=== PATIENT | male | born 1950 | race Caucasian/White ===

== ENCOUNTER 2016-10-01 09:56 | Emergency (ER) | payer MEDICARE, BC ==
[2016-10-01] MEDS ORDERED: MECLIZINE 25 MG TABLET PO ONE (10:15)
--- NOTE | 2016-10-01 10:21 | Emergency Department Record ---
History of Present Illness - General Chief Complaint: Dizziness Stated Complaint: FEELING UNBALANCED Time Seen by Provider: 10/01/16 10:15 Source: Patient Mode of Arrival: Ambulatory Limitations: No limitations - History of Present Illness Initial Comments: 65 yo male presents to ED with a CC of feeling "off balance" after bending down this morning to tie his shoes. Patient reports similar symptoms previously, denies numbness, tingling, or focal weakness on examination. Patient drove himself here, and denies difficulty walking. MD Complaint: Dizziness Onset/Timin -: Hour(s) Timing: Sudden onset Description: Nausea, "Room spinning" History of Same: Yes History of Trauma: No Severity: Mild Improves With: Nothing Worsens With: Nothing Associated Symptoms: Denies other symptoms - [place] Coma Scale Eye Response: (4) Open spontaneously Motor Response: (6) Obeys commands Verbal Response: (5) Oriented Maggie Total: 15 - Related Data Home Medications Medication Instructions Recorded Confirmed Last Taken Levothyroxine Sodium [Synthroid] 175 mcg PO DAILY 09/29/14 10/01/16 03/19/16 Lisinopril [Lisinopril] 10 mg PO DAILY 09/29/14 10/01/16 03/19/16 Montelukast Sodium [Singulair] 10 mg PO DAILY 09/29/14 10/01/16 03/19/16 Omeprazole [Omeprazole] 20 mg PO DAILY 09/29/14 10/01/16 03/19/16 Terazosin HCl 2 mg PO DAILY 03/20/16 10/01/16 03/19/16 Tamsulosin HCl [Flomax] 0.4 mg PO DAILY 10/01/16 10/01/16 Unknown Previous Rx's Medication Instructions Recorded Meclizine HCl [Antivert] 25 mg PO Q8H PRN #20 tablet 10/01/16 Allergies Allergy/AdvReac Type Severity Reaction Status Date / Time No Known Drug Allergies Allergy Verified 03/20/16 09:37 Travel Screening - Travel/Exposure Within Last 30 Days Have you traveled within the last 30 days?: No Review of Systems Constitutional: Denies: Chills, Fever, Malaise, Night sweats Eyes: Denies: Eye discharge, Eye pain, Photophobia ENT: Denies: Congestion, Ear pain, Epistaxis Respiratory: Denies: Cough, Dyspnea, Hemoptysis Cardiovascular: Denies: Chest pain, Dyspnea on exertion Endocrine: Denies: Fatigue, Heat or cold intolerance Gastrointestinal: Reports: Nausea. Denies: Abdominal pain, Constipation, Vomiting Genitourinary: Denies: Incontinence, Retention Musculoskeletal: Denies: Arthralgia, Back pain, Gout, Joint swelling Skin: Denies: Bruising, Change in color Neurological: Reports: Vertigo. Denies: Abnormal gait, Confusion, Headache, Seizure Psychiatric: Denies: Anxiety Hematological/Lymphatic: Denies: Anemia, Blood Clots Past Medical History - SOCIAL HISTORY Smoking Status: Former smoker Alcohol Use: None Drug Use: None - RESPIRATORY Hx Respiratory Disorders: Yes Hx COPD: Yes - CARDIOVASCULAR Hx Cardio Disorders: Yes Hx Hypertension: Yes - NEURO Hx Neuro Disorders: No - GI Hx GI Disorders: No - Hx Genitourinary Disorders: No - ENDOCRINE Hx Endocrine Disorders: Yes Hx Thyroid Disease: Yes (Hypothyroidism) - MUSCULOSKELETAL Hx Musculoskeletal Disorders: No - PSYCH Hx Psych Problems: No - HEMATOLOGY/ONCOLOGY Hx Hematology/Oncology Disorders: No Family Medical History Any Significant Family History?: Yes Hx Heart Disease: Father Physical Exam - General General Appearance: Alert, Oriented x3, Cooperative, No acute distress, Other ( ambulates with steady gait) Limitations: No limitations - Head Head exam: Atraumatic, Normocephalic, Normal inspection Head exam detail: negative: Abrasion, Contusion, Aguilar's sign, General tenderness, Hematoma, Laceration - Eye Eye exam: Normal appearance, EOMI. negative: Conjunctival injection, Periorbital swelling, Periorbital tenderness, Scleral icterus - ENT Ear exam: negative: Auricular hematoma, Auricular trauma Nasal Exam: negative: Active bleeding, Discharge, Dried blood, Foreign body Mouth exam: negative: Drooling, Laceration, Muffled voice, Tongue elevation - Neck Neck exam: Normal inspection. negative: Meningismus, Tenderness - Respiratory Respiratory exam: Normal lung sounds bilaterally. negative: Rales, Respiratory distress, Rhonchi, Stridor - Cardiovascular Cardiovascular Exam: Regular rate, Normal rhythm, Normal heart sounds - GI/Abdominal GI/Abdominal exam: Soft. negative: Rebound, Rigid, Tenderness - Rectal Rectal exam: Deferred - exam: Deferred - Extremities Extremities exam: negative: Calf tenderness, Pedal edema, Tenderness - Back Back exam: Denies: CVA tenderness (R), CVA tenderness (L) - Neurological Neurological exam: Alert, CN II-XII intact, Oriented X3, Other (rapid, alternating UE movements are normal on examination, normal speech on exam). negative: Motor sensory deficit - Psychiatric Psychiatric exam: Normal affect, Normal mood - Skin Skin exam: Normal color. negative: Abrasion Type of lesion: negative: abrasion Course Vital Signs 10/01/16 10:00 Temperature 97.6 F Pulse Rate 72 Respiratory 20 Rate Blood Pressure 149/84 Pulse Ox 97 - Reevaluation(s) Reevaluation #1: 10/01/16 10:46 Labs reviewed and are grossly unremarkable for an acute process. Patient was updated on all results and reports improvement in his symptoms. Patient has no clinical sings of cerebellar CVA on examination, has steady gait, and normal rapid, alternating movements on examination. Patient appears stable for discharge at this time. Medical Decision Making - Lab Data Result diagrams: 10/01/16 10:25 10/01/16 10:25 Disposition Disposition: Discharge Clinical Impression: Vertigo Disposition: Home, Self-Care Condition: (2) Stable Instructions: Dizziness (ED) Additional Instructions: Return to ED if your symptoms worsen or if you have any concerns. Antivert as directed. Follow-up with your family doctor in 3-5 days as directed. Prescriptions: Meclizine HCl [Antivert] 25 mg PO Q8H PRN #20 tablet PRN Reason: Dizziness Forms: Patient Portal Access Time of Disposition: 10:48
[2016-10-01 10:30] LABS: BASO % 0.4 % (0-6); EOS % 1.6 % (0-6); GRAN % 62.8 % (47-80); HEMATOCRIT 40.4 % (42.0-52.0); HEMOGLOBIN 13.7 gm/dl (14.0-18.0); LYMPH % 25.5 % (16-45); MEAN CELL VOLUME 86.3 fl (81-97); MEAN CORPUSCULAR HGB CONC 33.9 g/dl (32-36); MONO % 9.7 % (0-9); PLATELET COUNT 230 K/uL (130-400); RED BLOOD COUNT 4.68 M/uL (4.40-5.70); RED CELL DISTRIBUTION WIDTH 14.8 % (11.5-14.5); WHITE BLOOD COUNT W/O DIFF 5.5 K/uL (4.2-12.2)
[2016-10-01 10:31] LABS: MEAN CORPUSCULAR HEMOGLOBIN 29.2 pg (27-33)
[2016-10-01 10:44] LABS: ALB/GLOB RATIO 1.5 (1.1-1.8); ALBUMIN 4.1 gm/dL (3.5-5.0); ALKALINE PHOSPHATASE 73 U/L (38-126); ALT/SGPT 41 U/L (21-72); ANION GAP 12.2 (7-16); AST/SGOT 33 U/L (17-59); BILIRUBIN,TOTAL 0.46 mg/dL (0.2-1.3); BLOOD UREA NITROGEN 16 mg/dL (9-20); CARBON DIOXIDE 25.8 mmol/L (22-30); EST GLOMERULAR FILTRATION RATE > 60 ml/min; GLUCOSE,RANDOM 105 mg/dL (70-110); TOTAL PROTEIN 6.9 gm/dL (6.3-8.2)
== END 2016-10-01 11:02 | disposition home or self-care (01) ==
LOC: ER 09:56
DX: R42 Dizziness and giddiness (principal); R11.0 Nausea; I10 Essential (primary) hypertension; J44.9 Chronic obstructive pulmonary disease, unspecified; Z87.891 Personal history of nicotine dependence
CPT/HCPCS: 80053; 85025; 99283

== ENCOUNTER 2016-12-07 07:19 | Emergency (ER) | payer MEDICARE, BC ==
[2016-12-07] MEDS ORDERED: IPRATROPIUM/ALBUTEROL (0.5MG/3MG) NEB INH ONE (07:44)
--- NOTE | 2016-12-07 07:50 | Emergency Department Record ---
History of Present Illness - General Chief Complaint: Wheezing Stated Complaint: COUGHING/WHEEZING/CONGESTION Time Seen by Provider: 12/07/16 07:37 Source: Patient Mode of Arrival: Ambulatory Limitations: No limitations - History of Present Illness Initial Comments: pt has been sick since fri prod brown cough, fevers, sob, congestion. MD Complaint: Shortness of breath, Wheezing Onset/Timin -: Days(s) Severity: Moderate Associated Symptoms: Productive cough - Related Data Home Medications Medication Instructions Recorded Confirmed Last Taken Levothyroxine Sodium [Synthroid] 150 mcg PO DAILY 09/29/14 12/07/16 1 Day Ago ~12/06/16 Lisinopril [Lisinopril] 10 mg PO DAILY 09/29/14 12/07/16 1 Day Ago ~12/06/16 Montelukast Sodium [Singulair] 10 mg PO DAILY 09/29/14 12/07/16 1 Day Ago ~12/06/16 Omeprazole [Omeprazole] 20 mg PO DAILY 09/29/14 12/07/16 1 Day Ago ~12/06/16 Terazosin HCl 2 mg PO DAILY 03/20/16 12/07/16 1 Day Ago ~12/06/16 Tamsulosin HCl [Flomax] 0.4 mg PO DAILY 10/01/16 12/07/16 1 Day Ago ~12/06/16 Previous Rx's Medication Instructions Recorded Meclizine HCl [Antivert] 25 mg PO Q8H PRN #20 tablet 10/01/16 Albuterol Sulfate [Ventolin Hfa] 1 - 2 puff IH .EVERY 4-6 HOURS PRN 12/07/16 #1 inhaler Amoxicillin [Amoxil] 500 mg PO TID #30 tab 12/07/16 Allergies Allergy/AdvReac Type Severity Reaction Status Date / Time Sulfa (Sulfonamide AdvReac HYPERSENSIT Verified 12/07/16 07:28 Antibiotics) IVITY Travel Screening - Travel/Exposure Within Last 30 Days Have you traveled within the last 30 days?: No - Travel/Exposure Within Last Year Have you traveled outside the [place] in the last year?: No - Additonal Travel Details Have you been exposed to anyone with a communicable illness?: No - Travel Symptoms Symptom Screening: None Review of Systems Reviewed: No additional complaints except as noted below Constitutional: Reports: As per HPI. Denies: Chills, Fever, Malaise, Night sweats, Weakness, Weight change Eyes: Reports: As per HPI. Denies: Eye discharge, Eye pain, Photophobia, Vision change ENT: Reports: As per HPI. Denies: Congestion, Dental pain, Ear pain, Epistaxis , Hearing loss, Throat pain Respiratory: Reports: As per HPI. Denies: Cough, Dyspnea, Hemoptysis, Stridor, Wheezes Cardiovascular: Reports: As per HPI. Denies: Arrhythmia, Chest pain, Dyspnea on exertion, Edema, Murmurs, Orthopnea, Palpitations, Paroxysmal nocturnal dyspnea, Rheumatic Fever, Syncope Endocrine: Reports: As per HPI. Denies: Fatigue, Heat or cold intolerance, Polydipsia, Polyuria Gastrointestinal: Reports: As per HPI. Denies: Abdominal pain, Constipation, Diarrhea, Hematemesis, Hematochezia, Melena, Nausea, Vomiting Genitourinary: Reports: As per HPI. Denies: Dysuria, Frequency, Hematuria, Incontinence, Retention, Testicular pain, Testicular mass, Urgency Musculoskeletal: Reports: As per HPI. Denies: Arthralgia, Back pain, Gout, Joint swelling, Myalgia, Neck pain Skin: Reports: As per HPI. Denies: Bruising, Change in color, Change in hair/ nails, Lesions, Pruritus, Rash Neurological: Reports: As per HPI. Denies: Abnormal gait, Confusion, Headache, Numbness, Paresthesias, Seizure, Tingling, Tremors, Vertigo, Weakness Psychiatric: Reports: As per HPI. Denies: Anxiety, Auditory hallucinations, Depression, Homicidal thoughts, Suicidal thoughts, Visual hallucinations Hematological/Lymphatic: Reports: As per HPI. Denies: Anemia, Blood Clots, Easy bleeding, Easy bruising, Swollen glands Past Medical History - SOCIAL HISTORY Smoking Status: Former smoker Alcohol Use: Occassional Drug Use: None - RESPIRATORY Hx Respiratory Disorders: Yes Hx Bronchitis: Yes Hx COPD: Yes Hx Pneumonia: Yes (2-3 times) - CARDIOVASCULAR Hx Cardio Disorders: Yes Hx Hypertension: Yes - NEURO Hx Neuro Disorders: No - GI Hx GI Disorders: No - Hx Genitourinary Disorders: No - ENDOCRINE Hx Endocrine Disorders: Yes Hx Thyroid Disease: Yes (Hypothyroidism) - MUSCULOSKELETAL Hx Musculoskeletal Disorders: No - PSYCH Hx Psych Problems: No - HEMATOLOGY/ONCOLOGY Hx Hematology/Oncology Disorders: No Family Medical History Any Significant Family History?: Yes Hx Heart Disease: Father Physical Exam - General General Appearance: Alert, Oriented x3, Cooperative, Mild distress - Head Head exam: Normal inspection - Eye Eye exam: Normal appearance, PERRL, EOMI Pupils: Normal accommodation - ENT ENT exam: Normal exam, Mucous membranes moist, Normal external ear exam, Normal orophraynx, TM's normal bilaterally Ear exam: Normal external inspection. negative: External canal tenderness Nasal Exam: Normal inspection. negative: Discharge, Sinus tenderness Mouth exam: Normal external inspection, Tongue normal Teeth exam: Normal inspection. negative: Dental caries Throat exam: Normal inspection. negative: Tonsillar erythema, Tonsillar exudate - Neck Neck exam: Normal inspection, Full ROM. negative: Tenderness - Respiratory Respiratory exam: Decreased breath sounds. negative: Respiratory distress - Cardiovascular Cardiovascular Exam: Regular rate, Normal rhythm, Normal heart sounds - GI/Abdominal GI/Abdominal exam: Soft, Normal bowel sounds. negative: Tenderness - Rectal Rectal exam: Deferred - exam: Deferred - Extremities Extremities exam: Normal inspection, Full ROM, Normal capillary refill. negative: Tenderness - Back Back exam: Reports: Normal inspection, Full ROM. Denies: Muscle spasm, Rash noted, Tenderness - Neurological Neurological exam: Alert, CN II-XII intact, Normal gait, Oriented X3 - Psychiatric Psychiatric exam: Normal affect, Normal mood - Skin Skin exam: Dry, Intact, Normal color, Warm Course Vital Signs 12/07/16 07:22 Temperature 97.5 F L Pulse Rate 54 L Respiratory 20 Rate Blood Pressure 143/74 Pulse Ox 97 Disposition Disposition: Discharge Clinical Impression: Bronchitis Disposition: Home, Self-Care Condition: (1) Good Instructions: Acute Bronchitis (ED) Additional Instructions: follow up with family doctor. rest . return sooner if worse. Prescriptions: Albuterol Sulfate [Ventolin Hfa] 1 - 2 puff IH .EVERY 4-6 HOURS PRN #1 inhaler PRN Reason: Difficulty In Breathing Amoxicillin [Amoxil] 500 mg PO TID #30 tab Forms: Patient Portal Access
== END 2016-12-07 09:16 | disposition home or self-care (01) ==
LOC: ER 07:19
DX: J20.9 Acute bronchitis, unspecified (principal); R06.02 Shortness of breath; J44.9 Chronic obstructive pulmonary disease, unspecified; I10 Essential (primary) hypertension
CPT/HCPCS: 71020; 94640; 99283; 99284

== ENCOUNTER 2017-03-02 13:38 | Emergency (ER) | payer MEDICARE, BC ==
--- NOTE | 2017-03-02 13:56 | Emergency Department Record ---
History of Present Illness - General Chief complaint: Extremity Problem Stated complaint: RED SPOTS ON BOTH LEGS/SWOLLEN Time Seen by Provider: 03/02/17 13:46 Source: Patient Mode of Arrival: Ambulatory Limitations: No limitations - History of Present Illness Initial comments: 66 yo male presents with a rash to his legs. The onset was today. He has patchy redness near both ankles and just distal to the knees. No itching. No fever. No pain. No weeping. No nausea. No cough or chest pain. He believes he has mild swelling. He had umbilical hernia surgery this past week. He has not had any concerns or questions since the surgery. His sight is healing well. Normal appetite. No rash anywhere else on the body. Surgery weight was 209. Today's weight is 305. MD Complaint: Other (Rash) Onset/Timin -: Hour(s) Location: Bilateral History of Same: No Radiation: None Consistency: Constant Improves with: Nothing Worsens with: Nothing Associated Symptoms: Rash - Related Data Home Medications Medication Instructions Recorded Confirmed Last Taken Levothyroxine Sodium [Synthroid] 150 mcg PO DAILY 09/29/14 03/02/17 1 Day Ago ~12/06/16 Lisinopril [Lisinopril] 10 mg PO DAILY 09/29/14 03/02/17 1 Day Ago ~12/06/16 Montelukast Sodium [Singulair] 10 mg PO DAILY 09/29/14 03/02/17 1 Day Ago ~12/06/16 Omeprazole [Omeprazole] 20 mg PO DAILY 09/29/14 03/02/17 1 Day Ago ~12/06/16 Terazosin HCl 2 mg PO DAILY 03/20/16 03/02/17 1 Day Ago ~12/06/16 Tamsulosin HCl [Flomax] 0.4 mg PO DAILY 10/01/16 03/02/17 1 Day Ago ~12/06/16 Previous Rx's Medication Instructions Recorded Albuterol Sulfate [Ventolin Hfa] 1 - 2 puff IH .EVERY 4-6 HOURS PRN 12/07/16 #1 inhaler Furosemide [Lasix] 20 mg PO DAILY #4 tablet 03/02/17 Methylprednisolone [Medrol Dose 4 mg PO DAILY #1 tab.ds.pk 03/02/17 Pack] Allergies Allergy/AdvReac Type Severity Reaction Status Date / Time Sulfa (Sulfonamide AdvReac HYPERSENSIT Verified 12/07/16 07:28 Antibiotics) IVITY Travel Screening - Travel/Exposure Within Last 30 Days Have you traveled within the last 30 days?: No Review of Systems Constitutional: Denies: Chills, Fever, Malaise, Weakness Eyes: Denies: Eye discharge ENT: Denies: Congestion, Throat pain Respiratory: Denies: Cough, Dyspnea, Hemoptysis, Stridor, Wheezes Cardiovascular: Denies: Chest pain, Syncope Endocrine: Denies: Fatigue Gastrointestinal: Denies: Abdominal pain, Diarrhea, Nausea, Vomiting Genitourinary: Denies: Dysuria, Frequency, Hematuria Musculoskeletal: Denies: Arthralgia, Back pain, Joint swelling, Myalgia, Neck pain Skin: Reports: As per HPI, Change in color, Rash Neurological: Denies: Confusion, Headache Psychiatric: Denies: Anxiety Hematological/Lymphatic: Denies: Blood Clots, Easy bleeding, Easy bruising, Swollen glands Past Medical History - SOCIAL HISTORY Smoking Status: Former smoker Alcohol Use: None Drug Use: None - RESPIRATORY Hx Respiratory Disorders: Yes Hx Bronchitis: Yes Hx COPD: Yes Hx Pneumonia: Yes (2-3 times) Hx Sleep Apnea: Yes Hx of CPAP: Yes Comment:: [employer]RON[employer] INSTRUMENT COUGH - CARDIOVASCULAR Hx Cardio Disorders: Yes Hx Hypertension: Yes (CONTROLLED WITH MEDS) - NEURO Hx Neuro Disorders: No - GI Hx GI Disorders: Yes Hx Reflux: Yes Comment:: CURRENT UMBILICAL HERNIA - Hx Genitourinary Disorders: Yes Hx Bladder Problem: Yes (FREQUENCY) - ENDOCRINE Hx Endocrine Disorders: Yes Hx Thyroid Disease: Yes (Hypothyroidism) - MUSCULOSKELETAL Hx Musculoskeletal Disorders: Yes Hx Arthritis: Yes (LOWER BACK) - PSYCH Hx Psych Problems: No - HEMATOLOGY/ONCOLOGY Hx Hematology/Oncology Disorders: Yes Hx Unexplained Bleeding: Yes (FOR SOME TIME) Family Medical History Any Significant Family History?: Yes Hx Heart Disease: Father Physical Exam - General General Appearance: Alert, Oriented x3, Cooperative, No acute distress Limitations: No limitations - Head Head exam: Normal inspection - Eye Eye exam: Normal appearance. negative: Conjunctival injection, Periorbital swelling - ENT ENT exam: Normal exam. negative: Mucous membranes moist Ear exam: negative: Normal external inspection Nasal Exam: negative: Normal inspection Mouth exam: negative: Normal external inspection - Neck Neck exam: Normal inspection, Full ROM. negative: Tenderness - Respiratory Respiratory exam: Normal lung sounds bilaterally. negative: Respiratory distress - Cardiovascular Cardiovascular Exam: Regular rate, Normal rhythm, Normal heart sounds Peripheral Pulses: 2+: Dorsalis Pedis (R), Dorsalis Pedis (L) - GI/Abdominal GI/Abdominal exam: Soft, Other (Umbilical site healing well without signs of infection). negative: Tenderness - Rectal Rectal exam: Deferred - exam: Deferred - Extremities Extremities exam: Normal capillary refill, Pedal edema (+1 symmetric and mild). negative: Normal inspection, Tenderness Image of Full Body: 1 - patchy erythema, no vesicle or blister, no induration, most CW possible vasulitis 2 - patchy erythema, no vesicle or blister, no induration, most CW possible vasulitis 3 - patchy erythema, no vesicle or blister, no induration, most CW possible vasulitis 4 - patchy erythema, no vesicle or blister, no induration, most CW possible vasulitis - Back Back exam: Reports: Normal inspection - Neurological Neurological exam: Alert, Oriented X3 - Psychiatric Psychiatric exam: Normal affect, Normal mood - Skin Skin exam: Dry, Intact, Normal color, Warm Course - Reevaluation(s) Reevaluation #1: The CBC was reviewed No acute changes The patient is up 6 pounds from 299 to 305 He likely has some dependent fluid retention after surgery His legs are symmetric and not tender. This is consistent with edema and not DVT. 03/02/17 14:25 Reevaluation #2: No acute changes on the CMP C-RP is 1.3 The patient will be sent home on lasix 20mg daily and Medrol dose pack He is to call his doctor tomorrow for close follow up 03/02/17 14:31 03/02/17 14:33 Medical Decision Making - Lab Data Result diagrams: 03/02/17 14:05 03/02/17 14:05 Disposition Disposition: Discharge Clinical Impression: Edema extremities, Rash Disposition: Home, Self-Care Condition: (1) Good Instructions: Leg Edema (ED) Additional Instructions: Call your doctor tomorrow for close follow up of the swelling and the rash Return to the ED if worse, fever, spreading rash Weight yourself daily until back to your normal weight Take the Lasix daily until weight is back to your normal Prescriptions: Furosemide [Lasix] 20 mg PO DAILY #4 tablet Methylprednisolone [Medrol Dose Pack] 4 mg PO DAILY #1 tab.ds.pk Forms: Patient Portal Access Time of Disposition: 14:33 Quality - Quality Measures Quality Measures: N/A - Blood Pressure Screening View Details: Yes Blood Pressure Classification: Hypertensive Reading Systolic Measurement: 154 Diastolic Measurement: 78 Screening for High Blood Pressure: < Pre-Hypertensive BP, F/U Documented > [ [id number]] Pre-Hypertensive Follow-up Interventions: Referral to alternative/primary care provider.
[2017-03-02 14:12] LABS: BASO % 0.4 % (0-6); EOS % 2.5 % (0-6); GRAN % 60.3 % (47-80); HEMATOCRIT 36.5 % (42.0-52.0); HEMOGLOBIN 12.4 gm/dl (14.0-18.0); LYMPH % 27.9 % (16-45); MEAN CELL VOLUME 84.5 fl (81-97); MEAN CORPUSCULAR HEMOGLOBIN 28.7 pg (27-33); MEAN PLATELET VOLUME 9.3 fl (7.4-10.4); MONO % 8.9 % (0-9); PLATELET COUNT 252 K/uL (130-400); RED BLOOD COUNT 4.32 M/uL (4.40-5.70); RED CELL DISTRIBUTION WIDTH 14.5 % (11.5-14.5); WHITE BLOOD COUNT W/O DIFF 5.6 K/uL (4.2-12.2)
[2017-03-02 14:27] LABS: ALB/GLOB RATIO 1.5 (1.1-1.8); ALBUMIN 4.1 gm/dL (3.5-5.0); ALKALINE PHOSPHATASE 62 U/L (38-126); ALT/SGPT 46 U/L (21-72); ANION GAP 8.2 (7-16); AST/SGOT 36 U/L (17-59); BILIRUBIN,TOTAL 0.69 mg/dL (0.2-1.3); BLOOD UREA NITROGEN 15 mg/dL (9-20); C-REACTIVE PROTEIN 1.3 mg/dL (0.0-0.9); CARBON DIOXIDE 27.8 mmol/L (22-30); EST GLOMERULAR FILTRATION RATE > 60 ml/min; GLUCOSE,RANDOM 117 mg/dL (70-110); TOTAL PROTEIN 6.8 gm/dL (6.3-8.2)
[2017-03-02] MEDS: FUROSEMIDE 20 MG TABLET PO ONE (14:27)
== END 2017-03-02 14:45 | disposition home or self-care (01) ==
LOC: ER 13:38
DX: R60.0 Localized edema (principal); R21 Rash and other nonspecific skin eruption; I10 Essential (primary) hypertension; Z87.891 Personal history of nicotine dependence; Z98.890 Other specified postprocedural states
CPT/HCPCS: 80053; 85025; 86140; 99283

== ENCOUNTER 2017-08-05 11:28 | Emergency (ER) | payer MEDICARE, BC ==
[2017-08-05] MEDS ORDERED: METHYLPREDNISOLONE PF 125MG/VIAL IM ONE (12:33)
[2017-08-05] MEDS ORDERED: IPRATROPIUM/ALBUTEROL (0.5MG/3MG) NEB INH ONE (12:33)
--- NOTE | 2017-08-05 12:38 | Emergency Department Record ---
History of Present Illness - General Chief Complaint: Cough Stated Complaint: COUGH Time Seen by Provider: 08/05/17 12:30 Source: Patient Mode of Arrival: Ambulatory Limitations: No limitations - History of Present Illness Initial Comments: pt has had a cough that is getting worse w prod brown cough. he feels sob Complaint: Cough, Nasal congestion Onset/Timin -: Days(s) Improves With: Nothing Worsens With: Nothing Associated Symptoms: Cough, Nasal congestion, Rhinorrhea - Related Data Previous Rx's Medication Instructions Recorded Albuterol Sulfate [Ventolin Hfa] 1 - 2 puff IH .EVERY 4-6 HOURS PRN 12/07/16 #1 inhaler Furosemide [Lasix] 20 mg PO DAILY #4 tablet 03/02/17 Methylprednisolone [Medrol Dose 4 mg PO DAILY #1 tab.ds.pk 03/02/17 Pack] Azithromycin [Zithromax] 250 mg PO DAILY #6 tab 08/05/17 Allergies Allergy/AdvReac Type Severity Reaction Status Date / Time Sulfa (Sulfonamide AdvReac HYPERSENSIT Verified 12/07/16 07:28 Antibiotics) IVITY Travel Screening - Travel/Exposure Within Last 30 Days Have you traveled within the last 30 days?: No - Travel/Exposure Within Last Year Have you traveled outside the [place] in the last year?: No - Additonal Travel Details Have you been exposed to anyone with a communicable illness?: No - Travel Symptoms Symptom Screening: None Review of Systems Reviewed: No additional complaints except as noted below Constitutional: Reports: As per HPI. Denies: Chills, Fever, Malaise, Night sweats, Weakness, Weight change Eyes: Reports: As per HPI. Denies: Eye discharge, Eye pain, Photophobia, Vision change ENT: Reports: As per HPI. Denies: Congestion, Dental pain, Ear pain, Epistaxis , Hearing loss, Throat pain Respiratory: Reports: As per HPI. Denies: Cough, Dyspnea, Hemoptysis, Stridor, Wheezes Cardiovascular: Reports: As per HPI. Denies: Arrhythmia, Chest pain, Dyspnea on exertion, Edema, Murmurs, Orthopnea, Palpitations, Paroxysmal nocturnal dyspnea, Rheumatic Fever, Syncope Endocrine: Reports: As per HPI. Denies: Fatigue, Heat or cold intolerance, Polydipsia, Polyuria Gastrointestinal: Reports: As per HPI. Denies: Abdominal pain, Constipation, Diarrhea, Hematemesis, Hematochezia, Melena, Nausea, Vomiting Genitourinary: Reports: As per HPI. Denies: Dysuria, Frequency, Hematuria, Incontinence, Retention, Testicular pain, Testicular mass, Urgency Musculoskeletal: Reports: As per HPI. Denies: Arthralgia, Back pain, Gout, Joint swelling, Myalgia, Neck pain Skin: Reports: As per HPI. Denies: Bruising, Change in color, Change in hair/ nails, Lesions, Pruritus, Rash Neurological: Reports: As per HPI. Denies: Abnormal gait, Confusion, Headache, Numbness, Paresthesias, Seizure, Tingling, Tremors, Vertigo, Weakness Psychiatric: Reports: As per HPI. Denies: Anxiety, Auditory hallucinations, Depression, Homicidal thoughts, Suicidal thoughts, Visual hallucinations Hematological/Lymphatic: Reports: As per HPI. Denies: Anemia, Blood Clots, Easy bleeding, Easy bruising, Swollen glands Past Medical History - SOCIAL HISTORY Smoking Status: Former smoker Alcohol Use: Rare Drug Use: None - RESPIRATORY Hx Respiratory Disorders: Yes Hx Bronchitis: Yes Hx COPD: Yes Hx Pneumonia: Yes (2-3 times) Hx Sleep Apnea: Yes Hx of CPAP: Yes Comment:: CHRONIC SECOND BUTLER COUGH - CARDIOVASCULAR Hx Cardio Disorders: Yes Hx Hypertension: Yes (CONTROLLED WITH MEDS) - NEURO Hx Neuro Disorders: No - GI Hx GI Disorders: Yes Hx Reflux: Yes Comment:: CURRENT UMBILICAL HERNIA - Hx Genitourinary Disorders: Yes Hx Bladder Problem: Yes (FREQUENCY) - ENDOCRINE Hx Endocrine Disorders: Yes Hx Thyroid Disease: Yes (Hypothyroidism) - MUSCULOSKELETAL Hx Musculoskeletal Disorders: Yes Hx Arthritis: Yes (LOWER BACK) - PSYCH Hx Psych Problems: No - HEMATOLOGY/ONCOLOGY Hx Hematology/Oncology Disorders: Yes Hx Unexplained Bleeding: Yes (FOR SOME TIME) Family Medical History Any Significant Family History?: No Hx Heart Disease: Father Physical Exam - General General Appearance: Alert, Oriented x3, Cooperative, Mild distress - Head Head exam: Normal inspection - Eye Eye exam: Normal appearance, PERRL, EOMI Pupils: Normal accommodation - ENT ENT exam: Normal exam, Mucous membranes moist, Normal external ear exam, Normal orophraynx Ear exam: Normal external inspection. negative: External canal tenderness Nasal Exam: Normal inspection. negative: Discharge, Sinus tenderness Mouth exam: Normal external inspection, Tongue normal Teeth exam: Normal inspection. negative: Dental caries Throat exam: Normal inspection. negative: Tonsillar erythema, Tonsillar exudate - Neck Neck exam: Normal inspection, Full ROM. negative: Tenderness - Respiratory Respiratory exam: Wheezes. negative: Respiratory distress - Cardiovascular Cardiovascular Exam: Regular rate, Normal rhythm, Normal heart sounds - GI/Abdominal GI/Abdominal exam: Soft, Normal bowel sounds. negative: Tenderness - Rectal Rectal exam: Deferred - exam: Deferred - Extremities Extremities exam: Normal inspection, Full ROM, Normal capillary refill. negative: Tenderness - Back Back exam: Reports: Normal inspection, Full ROM. Denies: Muscle spasm, Rash noted, Tenderness - Neurological Neurological exam: Alert, CN II-XII intact, Normal gait, Oriented X3 - Psychiatric Psychiatric exam: Normal affect, Normal mood - Skin Skin exam: Dry, Intact, Normal color, Warm Course Vital Signs 08/05/17 12:17 Temperature 97.7 F Pulse Rate 64 Respiratory 18 Rate Blood Pressure 120/70 Pulse Ox 96 Disposition Disposition: Discharge Clinical Impression: Bronchitis, Asbestos-induced pleural plaque Disposition: Home, Self-Care Condition: (1) Good Instructions: Acute Bronchitis (ED) Additional Instructions: follow up with family doctor. return sooner if worse. Prescriptions: Azithromycin [Zithromax] 250 mg PO DAILY #6 tab Forms: Patient Portal Access Quality - Quality Measures Quality Measures: N/A - Blood Pressure Screening Does Patient Have Any of the Following: No Blood Pressure Classification: Pre-Hypertensive BP Reading Systolic Measurement: 120 Diastolic Measurement: 70 Screening for High Blood Pressure: < Pre-Hypertensive BP, F/U Documented > [ G8950] Pre-Hypertensive Follow-up Interventions: Follow-up with rescreen every year.
--- NOTE | 2017-08-06 07:58 | RADIOLOGY REPORT ---
DATE: 08/05/2017 at 1:28 p.m. EXAM: TWO-VIEW, CHEST. HISTORY: Cough and congestion for a week. Difficulty in breathing today. TECHNIQUE: PA and lateral views. COMPARISON: Two-view, chest, dated 06/24/2017. FINDINGS: Stable heart size; mildly enlarged. Fairly extensive apparent pleural plaques bilaterally, several of which appear calcified as before. Clinical correlation again suggested as to possibility of prior asbestos exposure. Allowing for these overlying pleural plaques, no definite acute infiltrate is seen, and no pleural effusion or pneumothorax evident. Calcification and mild torsion of the aorta. IMPRESSION: 1. STABLE, MILD CARDIOMEGALY. 2. PROMINENT CALCIFIED PLEURAL PLAQUES BILATERALLY, INCLUDING ALONG THE HEMIDIAPHRAGMS. CLINICAL CORRELATION TO PRIOR ASBESTOS EXPOSURE SUGGESTED. 3. NO DEFINITE ACUTE INFILTRATE IDENTIFIED. JOB NUMBER: [id number] MTDD
== END 2017-08-05 14:08 | disposition home or self-care (01) ==
LOC: ER 11:28
DX: J20.9 Acute bronchitis, unspecified (principal); J92.0 Pleural plaque with presence of asbestos; R06.00 Dyspnea, unspecified; J44.9 Chronic obstructive pulmonary disease, unspecified; I10 Essential (primary) hypertension; Z87.891 Personal history of nicotine dependence
CPT/HCPCS: 71020; 94640; 96372; 99283; 99284; J2930

== ENCOUNTER 2019-05-06 09:35 | Emergency (ER) | payer MEDICARE, BC ==
[2019-05-06] MEDS ORDERED: ASPIRIN 81 MG CHEWABLE TABLET PO ONE (10:08)
[2019-05-06 10:18] LABS: ABSOLUTE NEUTROPHIL COUNT 3.42; BASO % 0.3 % (0-6); EOS % 2.2 % (0-6); GRAN % 58.1 % (47-80); HEMATOCRIT 39.1 % (42.0-52.0); HEMOGLOBIN 12.8 gm/dl (14.0-18.0); LYMPH % 30.1 % (16-45); MEAN CELL VOLUME 85.6 fl (81-97); MEAN CORPUSCULAR HGB CONC 32.7 g/dl (32-36); MEAN PLATELET VOLUME 9.5 fl (7.4-10.4); MONO % 9.3 % (0-9); PLATELET COUNT 272 K/uL (130-400); RED BLOOD COUNT 4.57 M/uL (4.40-5.70); RED CELL DISTRIBUTION WIDTH 14.3 % (11.5-14.5); WHITE BLOOD COUNT W/O DIFF 5.9 K/uL (4.2-12.2)
[2019-05-06 10:40] LABS: BLOOD UREA NITROGEN 18 mg/dL (8-23); EST GLOMERULAR FILTRATION RATE > 60 mL/min; TOTAL PROTEIN 6.9 g/dL (6.6-8.7)
[2019-05-06 10:42] LABS: GLUCOSE,RANDOM 114 mg/dL (74-109)
[2019-05-06 10:45] LABS: ALB/GLOB RATIO 1.6 (1.1-1.8); ALBUMIN 4.2 g/dL (4.0-5.0); ALKALINE PHOSPHATASE 72 U/L (40-129); ALT/SGPT 32 U/L (<41); AST/SGOT 34 U/L (10.0-50.0); CREATINE PHOSPHOKINASE 289 U/L (39-308)
[2019-05-06 10:47] LABS: CKMB 4.3 ng/mL (<6.73)
[2019-05-06 10:52] LABS: NTpro B-NATRIURETIC PEPTIDE < 5.00 pg/mL (<125)
--- NOTE | 2019-05-06 12:15 | Emergency Department Record ---
History of Present Illness - General Chief Complaint: Numbness Stated Complaint: NUMBNESS LEFT ARM/PAIN IN MIDDLE BACK Time Seen by Provider: 05/06/19 09:54 Source: Patient Mode of Arrival: Ambulatory Limitations: No limitations - History of Present Illness Initial Comments: pt has been having back pain of and on this week w l arm numbness and then today had some cp. he has never had this before. he did have some nausea and sob also. currently he is having no pain but still has the numbness Onset/Timin -: Days(s) Location: Left arm History of same: No Place: Home Severity: Mild Quality: Intermittent, Numb Improves With: None Worsens With: None On Anticoagulants: No Associated Symptoms: Chest pain, Other (back pain) Treatments Prior to Arrival: None - Maggie Coma Scale Eye Response: (4) Open spontaneously Motor Response: (6) Obeys commands Verbal Response: (5) Oriented [place] Total: 15 - Symptoms of Stroke Symptoms of stroke: Numbness - Related Data Allergies/Adverse Reactions: Allergies Allergy/AdvReac Type Severity Reaction Status Date / Time Sulfa (Sulfonamide AdvReac HYPERSENSIT Verified 05/06/19 09:38 Antibiotics) IVITY Travel Screening - Travel/Exposure Within Last 30 Days Have you traveled within the last 30 days?: No Review of Systems Reviewed: No additional complaints except as noted below Constitutional: Reports: As per HPI. Denies: Chills, Fever, Malaise, Night sweats, Weakness, Weight change Eyes: Reports: As per HPI. Denies: Eye discharge, Eye pain, Photophobia, Vision change ENT: Reports: As per HPI. Denies: Congestion, Dental pain, Ear pain, Epistaxis, Hearing loss, Throat pain Respiratory: Reports: As per HPI. Denies: Cough, Dyspnea, Hemoptysis, Stridor, Wheezes Cardiovascular: Reports: As per HPI, Chest pain. Denies: Arrhythmia, Dyspnea on exertion, Edema, Murmurs, Orthopnea, Palpitations, Paroxysmal nocturnal dyspnea, Rheumatic Fever, Syncope Endocrine: Reports: As per HPI. Denies: Fatigue, Heat or cold intolerance, Polydipsia, Polyuria Gastrointestinal: Reports: As per HPI. Denies: Abdominal pain, Constipation, Diarrhea, Hematemesis, Hematochezia, Melena, Nausea, Vomiting Genitourinary: Reports: As per HPI. Denies: Dysuria, Frequency, Hematuria, Incontinence, Retention, Testicular pain, Testicular mass, Urgency Musculoskeletal: Reports: As per HPI. Denies: Arthralgia, Back pain, Gout, Joint swelling, Myalgia, Neck pain Skin: Reports: As per HPI. Denies: Bruising, Change in color, Change in hair/nails, Lesions, Pruritus, Rash Neurological: Reports: As per HPI. Denies: Abnormal gait, Confusion, Headache, Numbness, Paresthesias, Seizure, Tingling, Tremors, Vertigo, Weakness Psychiatric: Reports: As per HPI. Denies: Anxiety, Auditory hallucinations, Depression, Homicidal thoughts, Suicidal thoughts, Visual hallucinations Hematological/Lymphatic: Reports: As per HPI. Denies: Anemia, Blood Clots, Easy bleeding, Easy bruising, Swollen glands Past Medical History - SOCIAL HISTORY Smoking Status: Former smoker Alcohol Use: None Drug Use: None - RESPIRATORY Hx Respiratory Disorders: Yes Hx Bronchitis: Yes Hx COPD: Yes Hx Pneumonia: Yes (2-3 times) Hx Sleep Apnea: Yes Hx of CPAP: Yes - CARDIOVASCULAR Hx Cardio Disorders: Yes Hx Hypertension: Yes (CONTROLLED WITH MEDS) - NEURO Hx Neuro Disorders: No - GI Hx GI Disorders: Yes Hx Reflux: Yes - Hx Genitourinary Disorders: Yes Hx Bladder Problem: Yes (FREQUENCY) - ENDOCRINE Hx Endocrine Disorders: Yes Hx Thyroid Disease: Yes (Hypothyroidism) - MUSCULOSKELETAL Hx Musculoskeletal Disorders: Yes Hx Arthritis: Yes (LOWER BACK) - PSYCH Hx Psych Problems: No - HEMATOLOGY/ONCOLOGY Hx Hematology/Oncology Disorders: Yes Family Medical History Any Significant Family History?: Yes Hx Heart Disease: Father Physical Exam - General General Appearance: Alert, Oriented x3, Cooperative, Mild distress - Head Head exam: Normal inspection - Eye Eye exam: Normal appearance, PERRL, EOMI Pupils: Normal accommodation - ENT ENT exam: Normal exam, Mucous membranes moist, Normal external ear exam, Normal orophraynx Ear exam: Normal external inspection. negative: External canal tenderness Nasal Exam: Normal inspection. negative: Discharge, Sinus tenderness Mouth exam: Normal external inspection, Tongue normal Teeth exam: Normal inspection. negative: Dental caries Throat exam: Normal inspection. negative: Tonsillar erythema, Tonsillar exudate - Neck Neck exam: Normal inspection, Full ROM. negative: Tenderness - Respiratory Respiratory exam: Normal lung sounds bilaterally. negative: Respiratory distress - Cardiovascular Cardiovascular Exam: Regular rate, Normal rhythm, Normal heart sounds - GI/Abdominal GI/Abdominal exam: Soft, Normal bowel sounds. negative: Tenderness - Rectal Rectal exam: Deferred - exam: Deferred - Extremities Extremities exam: Normal inspection, Full ROM, Normal capillary refill. negative: Tenderness - Back Back exam: Reports: Normal inspection, Full ROM. Denies: Muscle spasm, Rash noted, Tenderness - Neurological Neurological exam: Alert, CN II-XII intact, Normal gait, Oriented X3 - Psychiatric Psychiatric exam: Normal affect, Normal mood - Skin Skin exam: Dry, Intact, Normal color, Warm Course Vital Signs 05/06/19 09:39 Temperature 98.2 F Pulse Rate 67 Respiratory 20 Rate Blood Pressure 155/80 Pulse Ox 98 - Reevaluation(s) Reevaluation #1: 05/06/19 13:04 pt just prior to transfer had a spell of bradycardia in the 40s and bp 88/. improved quickly with fluids and time...within a few minutes. repeat ekg nsr Medical Decision Making - Lab Data Result diagrams: 05/06/19 08:55 05/06/19 08:55 Lab Results 05/06/19 05/06/19 05/06/19 Range/Units 08:55 08:55 08:55 WBC 5.9 (4.2-12.2) K/uL RBC 4.57 (4.40-5.70) M/uL Hgb 12.8 L (14.0-18.0) gm/dl Hct 39.1 L (42.0-52.0) % MCV 85.6 (81-97) fl MCH 28.0 (27-33) pg MCHC 32.7 (32-36) g/dl RDW 14.3 (11.5-14.5) % Plt Count 272 (130-400) K/uL MPV 9.5 (7.4-10.4) fl Gran % 58.1 (47-80) % Lymphocytes % 30.1 (16-45) % Monocytes % 9.3 H (0-9) % Eosinophils % 2.2 (0-6) % Basophils % 0.3 (0-6) % Absolute Neutrophils 3.42 D-Dimer 0.54 (0-0.59) mg/L FEU Sodium 141 (136-145) mmol/L Potassium 4.1 (3.4-4.5) mmol/L Chloride 102 (98-107) mmol/L Carbon Dioxide 27.0 (22-29) mmol/L Anion Gap 12.0 (7-16) BUN 18 (8-23) mg/dL Creatinine 1.0 (0.7-1.2) mg/dL Estimated GFR > 60 mL/min Random Glucose 114 H (74-109) mg/dL Calcium 9.5 (8.8-10.2) mg/dL Total Bilirubin 0.30 (0.2-1.0) mg/dL AST 34 (10.0-50.0) U/L ALT 32 (<41) U/L Alkaline Phosphatase 72 (40-129) U/L Creatine Kinase 289 (39-308) U/L CK-MB (CK-2) 4.3 (<6.73) ng/mL Troponin T < 0.010 (0-0.010) ng/mL NT-Pro-B Natriuret Pep < 5.00 (<125) pg/mL Total Protein 6.9 (6.6-8.7) g/dL Albumin 4.2 (4.0-5.0) g/dL Globulin 2.7 (1.4-4.8) gm/dL Albumin/Globulin Ratio 1.6 (1.1-1.8) Disposition Disposition: Transfer Clinical Impression: Chest pain Qualifiers: Chest pain type: unspecified Qualified Code(s): R07.9 - Chest pain, unspecified Disposition: Acute Care Hospital Transfer Transfer To: [facility] Reason For Transfer: needs cardiology Accepting Physician: dr darling Time Discussed w/Accepting Physician: 12:53 Quality - Quality Measures Quality Measures: N/A - Blood Pressure Screening Does Patient Have Any of the Following: No Blood Pressure Classification: Pre-Hypertensive BP Reading Systolic Measurement: 155 Diastolic Measurement: 80 Screening for High Blood Pressure: < Pre-Hypertensive BP, F/U Documented > [G8950] Pre-Hypertensive Follow-up Interventions: Follow-up with rescreen every year.
[2019-05-06] MEDS ORDERED: 0.9 % SODIUM CHLORIDE 1,000 ML BAG IV ONE (13:08)
--- NOTE | 2019-05-08 16:28 | CT SCAN REPORT ---
DATE: 05/06/2019. EXAM: CT OF THE CHEST WITH CONTRAST. HISTORY: LEFT ARM PAIN, BACK PAIN, AND SHORTNESS OF BREATH WITH A HISTORY OF CHRONIC OBSTRUCTIVE PULMONARY DISEASE. ENCOUNTER: Not applicable. TECHNIQUE: Routine CT imaging of the chest was performed with sagittal and coronal reconstruction views. Intravenous contrast was administered with the type and volume in the medical record. COMPARISON: None. FINDINGS: There is no pleural or pericardial fluid. There is extensive calcified pleural plaque bilaterally. There is an enlarged right hilar lymph node measuring up to 1.5 cm. No other enlarged lymph nodes are seen; although the right paratracheal lymph node measures 9.0 mm in short axis. The study was not performed as a CT angiogram. Pulmonary arteries appear grossly normal. There is no evidence of aortic aneurysm or aortic dissection. There are scattered bands of scarring and atelectasis. There is a single small nodule in the periphery of the right lower lobe measuring approximately 3.0 x 5.0 mm. The lungs are otherwise clear. There are no discrete osseous lesions. IMPRESSION: 1. EXTENSIVE CALCIFIED PLEURAL PLAQUE CONSISTENT WITH PRIOR ASBESTOS EXPOSURE. 2. SINGLE SMALL NODULE IN THE RIGHT LOWER LOBE. NO FOLLOW UP IS NEEDED FOR NODULES OF THIS SIZE UNLESS THE PATIENT HAS RISK FACTORS FOR MALIGNANCY. IF THERE ARE RISK FACTORS, A FOLLOW-UP STUDY CAN BE PERFORMED IN 12 MONTHS. 3. SINGLE ENLARGED RIGHT HILAR LYMPH NODE WITH A PROMINENT BUT NON-ENLARGED LOW RIGHT PARATRACHEAL LYMPH NODE. Job Number: [id number] MTDD
== END 2019-05-06 15:10 | disposition short-term general hospital (02) ==
LOC: ER 09:35
DX: R07.9 Chest pain, unspecified (principal); E03.9 Hypothyroidism, unspecified; Z87.891 Personal history of nicotine dependence; I10 Essential (primary) hypertension; J44.9 Chronic obstructive pulmonary disease, unspecified
CPT/HCPCS: 99285 ×2; 82550; 85025; 82553; 80053; 84484; 85379; 83880; 71260; 93005; 93010; Q9967; J7030